=== PATIENT | female | born 1995 | race Caucasian/White ===

== ENCOUNTER 2018-02-21 13:12 | Emergency (ER) | payer BC ==
[2018-02-21] MEDS ORDERED: METR-1 PO (13:21)
[2018-02-21] MEDS ORDERED: ALPR-429 PO (13:21)
--- NOTE | 2018-02-21 13:24 | ER Report ---
History and Physical Time Seen By MD: 13:19 Hx. of Stated Complaint: PT REPORTS HAVING "WHITE STUFF THAT I CAN SCRAPE OFF MY TONGUE" AND "A BUMP ON THE SIDE OF MY TONGUE" AND FEELS LIKE SOMETHING IS "STUCK IN MY THROAT" FOR 1 WEEK. PT REPORTS STARTING FLAGYL LAST SATURDAY AND UNSURE IF SHE MIGHT BE HAVING AN ALLERGIC REACTION. HPI/ROS CHIEF COMPLAINT: Sore throat HISTORY OF PRESENT ILLNESS: This is a 21-year-old female presents to the emergency for sore throat. Patient states that she's been taking metronidazole for the last 6 days, developed a sore throat, called the nurse hotline they were concerned about an allergic reaction, she was sent to the emergency department for further evaluation. Patient arrives alert and oriented, no shortness of breath no chest pain or nausea no vomiting. Vital signs are stable. Patient has no hives, no other rashes. REVIEW OF SYSTEMS: Respiratory: No cough, no dyspnea. Cardiovascular: No chest pain, no palpitations. Gastrointestinal: No vomiting, no abdominal pain. Musculoskeletal: No back pain. Throat: As above. Allergies: Coded Allergies: No Known Drug Allergies (Unverified , 02/21/18) Home Meds Reported Medications Metronidazole (FLAGYL) 500 Mg Tablet, PO BID, TAB 02/21/18 Alprazolam (XANAX) 0.5 Mg Tablet, 0.5 TAB PO PRN, TAB 02/21/18 Past Medical/Surgical History Patient has a past medical history of depression, no surgical history. Reviewed Nurses Notes: Yes Constitutional Vital Sign - Last 24 Hours 02/21/18 13:15 Temp 98.6 Pulse 80 Resp 18 B/P (MAP) 128/64 Pulse Ox 96 O2 Delivery Room Air Physical Exam General Appearance: The patient is alert, has no immediate need for airway protection and no current signs of toxicity. Eyes: Pupils equal and round no injection. Throat: Mild tonsillar hypertrophy, no exudates, no erythema, no respiratory gladys. Respiratory: Chest is non tender, lungs are clear to auscultation. Cardiac: regular rate and rhythm, no murmurs, clicks or rubs. Gastrointestinal: Abdomen is soft and non tender, no masses, bowel sounds normal. Musculoskeletal: Neck: Neck is supple and non tender, mild anterior cervical chain lymphadenopathy Extremities have full range of motion and are non tender. Skin: No rashes or lesions. DIFFERENTIAL DIAGNOSIS: After history and physical exam differential diagnosis was considered for mononucleosis, bacterial pharyngitis, viral pharyngitis and seasonal allergies. Medical Decision Making Data Points Laboratory Hematology Test 02/21/18 13:38 Group A Streptococcus Screen Negative (NEGATIVE) Chemistry Test 02/21/18 13:38 Group A Streptococcus Screen Negative (NEGATIVE) ED Course/Re-evaluation ED Course The patient was admitted to room. History is obtained. Differential diagnoses were considered. A rapid strep throat was negative. I did review the lab results with the patient and her mother. I did tell that this is likely a viral pharyngitis or allergies. I sent her home with an Rx for magic mouthwash and did instruct her to try claritin or zyrtec as needed for allergy relief. She expressed understanding and was discharged home. I also instructed her to follow up with and or establish a PCP in 7 days if no improvement, return for worsening symptoms. Decision to Disposition Date: Feb 21, 2018 Decision to Disposition Time: 13:59 Depart Departure Latest Vital Signs Vital Signs Date Time Temp Pulse Resp B/P (MAP) Pulse Ox O2 Delivery O2 Flow Rate FiO2 02/21/18 13:15 98.6 80 18 128/64 96 Room Air Impression: Primary Impression: Viral pharyngitis Condition: Improved Disposition: HOME OR SELF-CARE Patient Instructions: Pharyngitis (ED) Additional Instructions: Drink plenty of water. Get plenty of rest. Take ibuprofen or Tylenol as needed for pain. Try the Magic mouthwash for throat discomfort. Follow-up with your primary care provider in 7 days if no improvement. Finished the metronidazole. Return to the emergency department for any other concerns or worsening symptoms. EMORY CUNNINGHAM [employer] Feb 21, 2018 13:24
[2018-02-21 13:30] VITALS: BP 128/71
== END 2018-02-21 14:01 | disposition home or self-care (01) ==
LOC: ER 13:16
DX: J02.9 Acute pharyngitis, unspecified (principal)
CPT/HCPCS: 87081; 87880; 99282